=== PATIENT | male | born 1980 | race Two or more races ===

== ENCOUNTER 2025-03-19 12:47 | Emergency (ER) | payer OTHER ==
[~2025-03-19] VITALS: Ht 180.3 cm; Wt 83.9 kg
[2025-03-19 13:38] VITALS: BP 128/81; O2SAT 97
[2025-03-19] MEDS ORDERED: KETOROLAC TROMETHAMINE 15 MG VIAL IM STA (14:11)
[2025-03-19] MEDS ORDERED: CEFTRIAXONE SODIUM 1,000 MG VIAL IM STA (14:12)
[2025-03-19] MEDS ORDERED: DIPHTH,PERTUSS(ACELL),TET VAC 0.5 ML VIAL IM STA (14:15)
[2025-03-19] MEDS ORDERED: KETOROLAC TROMETHAMINE 30 MG VIAL ONE (15:18)
[2025-03-19] MEDS ORDERED: CEFTRIAXONE SODIUM 1,000 MG VIAL ONE (15:18)
[2025-03-19] MEDS ORDERED: DIPHTH,PERTUSS(ACELL),TET VAC 0.5 ML SYRINGE IM ONE (15:19)
[2025-03-19] MEDS ORDERED: AMOX-CLAV 875-1 EACH PO (15:53)
[2025-03-19] MEDS ORDERED: INTESTINEX680 M1 PO (15:53)
[2025-03-19] MEDS ORDERED: NABUMETONE500 MG PO (15:53)
== END 2025-03-19 16:10 | disposition home or self-care (01) ==
LOC: ER 13:15
DX: S01.311A Laceration without foreign body of right ear, initial encounter (principal); X58.XXXA Exposure to other specified factors, initial encounter; Y93.89 Activity, other specified; Y92.89 Other specified places as the place of occurrence of the external cause; Y99.8 Other external cause status
CPT/HCPCS: 13152; 13153; 90471; 90714; J1670